=== PATIENT | male | born 1945 | race Asian ===

== ENCOUNTER 2022-12-29 04:31 | Emergency (ER) | payer MEDICARE, OTHER ==
[~2022-12-29] VITALS: Ht 162.6 cm; Wt 74.0 kg
[2022-12-29 04:56] LABS: GLUCOMETER DEV NAME(LOC) ERT.5; GLUCOSE,POINT OF CARE 301 MG/DL (70-110)
[2022-12-29] MEDS ORDERED: METF-1211 PO (05:14)
[2022-12-29] MEDS ORDERED: AMLO5TAB66 PO (05:15)
[2022-12-29] MEDS ORDERED: ASPI81TA87 PO (05:19)
[2022-12-29] MEDS ORDERED: ATOR10TA69 PO (05:19)
[2022-12-29] MEDS ORDERED: ATOR20TA65 PO (05:27)
[2022-12-29] MEDS ORDERED: LISI-661 PO (05:27)
[2022-12-29] MEDS ORDERED: GLIP-102 PO (05:30)
[2022-12-29] MEDS ORDERED: [UNRECOGNIZED DRUG - OTHER] PO (05:30)
[2022-12-29] MEDS ORDERED: ONDANSETRON HCL 4 MG/2 ML VIAL IVP ONE (06:30)
[2022-12-29] MEDS ORDERED: FAMOTIDINE 10 MG/ML 2 ML VIAL IVP ONE (06:30)
[2022-12-29] MEDS ORDERED: ACETAMINOPHEN 500 MG TABLET PO ONE (06:30)
[2022-12-29] MEDS ORDERED: MAG HYDROX/AL HYDROX/SIMETH 30 ML SUSP UDCUP PO ONE (06:30)
[2022-12-29 06:38] LABS: BASOPHILS % (AUTO) 0.3 % (0.0-2.0); EOSINOPHILS % (AUTO) 0 % (1.0-6.0); HEMOGLOBIN 14.1 g/dL (13.5-17.5); LYMPHOCYTES % (AUTO) 9.4 % (22.0-44.0); MEAN CORPUSCULAR HGB CONC 33.5 G/dL (31.0-37.0); MEAN CORPUSCULAR VOLUME 99 fL (80-100); MONOCYTES # (AUTO) 0.3 K/uL (0.1-1.0); MONOCYTES % (AUTO) 3.2 % (2.0-9.0); NEUTROPHILS # (AUTO) 9.4 K/uL (1.8-7.7); PLATELET COUNT (AUTO) 157 K/uL (150-450); RED BLOOD CELL COUNT(AUTO) 4.27 MIL/uL (4.50-5.90); RED CELL DISTRIBUTION WIDTH 13.7 % (11.5-14.5)
[2022-12-29 06:41] LABS: NEUTROPHILS % (AUTO) 87.1 % (40.0-70.0)
[2022-12-29 06:50] LABS: CALCIUM, TOTAL 9.4 mg/dL (8.8-10.5); CREATININE 1.37 mg/dL (0.60-1.30); POTASSIUM 4.6 mmol/L (3.5-5.1)
[2022-12-29 07:15] LABS: ALBUMIN 4.1 g/dL (3.4-5.0); BILIRUBIN,TOTAL 0.5 mg/dL (0.1-1.0); TOTAL PROTEIN, SERUM 8.2 g/dL (6.4-8.2)
[2022-12-29 08:45] VITALS: BP 123/71
[2022-12-29 09:40] LABS: COVID AG,FIA SOURCE NASOPHARYNGEAL
[2022-12-29 10:51] LABS: INFLUENZA TYPE A NEGATIVE FOR TYPE A (NEGATIVE); INFLUENZA TYPE B NEGATIVE FOR TYPE B (NEGATIVE)
== END 2022-12-29 08:56 | disposition home or self-care (01) ==
LOC: EMS 04:33
DX: K80.20 Calculus of gallbladder without cholecystitis without obstruction (principal); E11.9 Type 2 diabetes mellitus without complications; I10 Essential (primary) hypertension; Z20.822 Contact with and (suspected) exposure to COVID-19
CPT/HCPCS: 99285; 96374; 76700; 71045; 96375; 87426; 80053; 82550; 82962; 83690; 83880; 84484; 85025; 87804; 36415; 93005; J3490; J2405; C9803